=== PATIENT | female | born 1950 | race Caucasian/White ===

== ENCOUNTER 2017-05-11 08:55 | Emergency (ER) | payer MEDICARE, MEDICAID ==
--- NOTE | 2017-05-11 09:34 | EDM.PDOC ---
ED HPI GENERAL MEDICAL PROBLEM - General Chief Complaint: Head Injury Stated Complaint: FELL . IN BY DL AMB Time Seen by Provider: 05/11/17 09:10 Source of Information: Reports: Patient, EMS History Limitations: Reports: No Limitations - History of Present Illness INITIAL COMMENTS - FREE TEXT/NARRATIVE: This 66 yo female patient was brought to the ED by [facility] due to a ground level fall. The patient was at the [facility] when she tripped and hit her forehead on the floor. The patient as a contusion and abrasion on her forehead. The patient denies any loss of consciousness before, during or after the incident. Onset: Today Duration: Minutes: Location: Reports: Head Quality: Reports: Ache, Dull Severity: Mild Improves with: Reports: None Worsens with: Reports: Medication Context: Reports: Trauma (ground level fall) Associated Symptoms: Reports: No Other Symptoms Frontal Head Pain Score (Numeric/FACES): 2 - Related Data Allergies Allergy/AdvReac Type Severity Reaction Status Date / Time No Known Allergies Allergy Verified 05/11/17 08:57 Home Meds: Home Meds Calcium Carbonate [Calcium] 500 mg PO DAILY 05/11/17 [History] Celecoxib 200 mg PO DAILY 05/11/17 [History] Levothyroxine 112 mcg PO DAILY 05/11/17 [History] Metoprolol Succinate 50 mg PO DAILY 05/11/17 [History] Valsartan 320 mg PO DAILY 05/11/17 [History] metFORMIN [Glucophage XR] 500 mg PO DAILY 05/11/17 [History] Past Medical History HEENT History: Reports: Impaired Vision Other HEENT History: legal blindness Cardiovascular History: Reports: High Cholesterol 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 ED EXAM, HEAD INJURY - Physical Exam Exam: See Below Exam Limited By: No Limitations General Appearance: Alert, WD/WN, No Apparent Distress Head: Facial Abrasions (forehead (1 cm)), Facial Swelling (4 cm contusion on forehead) Nexus Criteria: No: Posterior, Midline Cervical Tenderness, Evidence of Intoxication, Altered Level of Consciousness, Focal Neurological Deficit, Painful Distraction Injuries Eyes: Bilateral Eye: EOMI, Normal Inspection, PERRL Ears: Normal External Exam, Normal Canal, Hearing Grossly Normal, Normal TMs Nose: Normal Inspection, Normal Mucousa, No Blood Throat/Mouth: Normal Inspection, Normal Lips, Normal Teeth, Normal Gums, Normal Oropharynx, Normal Voice, No Airway Compromise Neck: Non-Tender, Full Range of Motion, Normal Alignment, Normal Inspection Respiratory: No Respiratory Distress, Lungs Clear, Normal Breath Sounds, No Accessory Muscle Use, Chest Non-Tender Cardiovascular: Normal Peripheral Pulses, Regular Rate, Rhythm, No Edema, No Gallop, No JVD, No Murmur, No Rub GI/Abdominal Exam: Normal Bowel Sounds, Soft, Non-Tender, No Organomegaly, No Distention, No Abnormal Bruit, No Mass (Female) Exam: Deferred Rectal (Female) Exam: Deferred Back Exam: Full Range of Motion, Normal Inspection, NT Extremities: Normal Inspection, Normal Range of Motion, Non-Tender, No Pedal Edema, Normal Capillary Refill 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 As Tested, No Motor/Sensory Deficits, Alert, Normal Mood/Affect, Oriented x 3 Skin: Normal Color, Warm/Dry - [place] Coma Score Best Eye Response ([place]): (4) Open Spontaneously Best Verbal Response ([place]): (5) Oriented Best Motor Response ([place]): (6) Obeys Commands [place] Total: 15 Course - Vital Signs Last Recorded V/S: Last Vital Signs Temp 36.2 C 05/11/17 09:00 Pulse 76 05/11/17 09:00 Resp 18 05/11/17 09:00 BP 160/71 H 05/11/17 09:00 Pulse Ox 97 05/11/17 09:00 - Orders/Labs/Meds Orders: Active Orders 24 hr Category Date Time Status Cervical Spine wo Cont [CT] Urgent Exams 05/11/17 09:05 Ordered Head wo Cont [CT] Urgent Exams 05/11/17 09:04 Ordered Max Facial Sinus wo Cont [CT] Urgent Exams 05/11/17 09:04 Ordered Departure - Departure Time of Disposition: 10:03 Disposition: Home, Self-Care 01 Condition: Fair Clinical Impression: Fall from ground level Forehead contusion Qualifiers: Encounter type: initial encounter Qualified Code(s): S00.83XA - Contusion of other part of head, initial encounter - Discharge Information Instructions: Facial or Scalp Contusion, [id number], Fall Prevention in the Home Forms: ED Department Discharge Care Plan Goals: The patient and care providers were advised of the examination and CT results during the visit. The patient was encouraged to slow down when moving from place to place. The patient's wound was dressed while in the ED. If the patient has any additional symptoms or concerns, the patient should follow-up with her primary care facility or return to the emergency department. - My Orders Last 24 Hours: My Active Orders 05/11/17 09:04 Head wo Cont [CT] Urgent Max Facial Sinus wo Cont [CT] Urgent 05/11/17 09:05 Cervical Spine wo Cont [CT] Urgent - Assessment/Plan Last 24 Hours: My Active Orders 05/11/17 09:04 Head wo Cont [CT] Urgent Max Facial Sinus wo Cont [CT] Urgent 05/11/17 09:05 Cervical Spine wo Cont [CT] Urgent
[2017-05-11 10:23] VITALS: BP 166/69
== END 2017-05-11 10:11 | disposition home or self-care (01) ==
LOC: DL.ED 08:55
DX: S00.83XA Contusion of other part of head, initial encounter (principal); E78.00 Pure hypercholesterolemia, unspecified; E11.9 Type 2 diabetes mellitus without complications; E03.9 Hypothyroidism, unspecified; M19.90 Unspecified osteoarthritis, unspecified site; Z90.710 Acquired absence of both cervix and uterus; Z79.899 Other long term (current) drug therapy; W18.30XA Fall on same level, unspecified, initial encounter
CPT/HCPCS: 70450; 70486; 72125; 99284

== ENCOUNTER 2017-12-03 16:27 | Emergency (ER) | payer MEDICARE, MEDICAID ==
[2017-12-03 16:32] VITALS: BP 166/78
--- NOTE | 2017-12-03 17:08 | EDM.PDOC ---
ED HPI GENERAL MEDICAL PROBLEM - General Chief Complaint: Head Injury Stated Complaint: FELL, MESSED UP FACE Time Seen by Provider: 12/03/17 16:40 Source of Information: Reports: Patient History Limitations: Reports: No Limitations - History of Present Illness INITIAL COMMENTS - FREE TEXT/NARRATIVE: This 67 yo female patient was brought to the ED by a caregiver due to a ground level fall. The patient reports [place] she [place] and fell on her face. The patient reports she had no loss of consciousness before, during or after the fall. The patient does have some bleeding from small lacerations to the bridge of the nose. The patient's left nare had dried blood with no active bleeding. Onset: Today Duration: Minutes:, Constant Location: Reports: Head, Face Quality: Reports: Ache, Dull Severity: Mild Improves with: Reports: None Worsens with: Reports: None Context: Reports: Trauma (ground level fall) Associated Symptoms: Reports: No Other Symptoms - Related Data Allergies Allergy/AdvReac Type Severity Reaction Status Date / Time No Known Allergies Allergy Verified 12/03/17 16:37 Home Meds: Home Meds Calcium Carbonate [Calcium] 500 mg PO DAILY 05/11/17 [History] Celecoxib 200 mg PO DAILY 05/11/17 [History] Levothyroxine 112 mcg PO DAILY 05/11/17 [History] Metoprolol Succinate 50 mg PO DAILY 05/11/17 [History] Valsartan 320 mg PO DAILY 05/11/17 [History] metFORMIN [Glucophage XR] 500 mg PO DAILY 05/11/17 [History] Magnesium 200 mg PO DAILY 12/03/17 [History] Past Medical History HEENT History: Reports: Other (See Below) Other HEENT History: legally blind Cardiovascular History: Reports: High Cholesterol, Hypertension 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 ED EXAM, HEAD INJURY - Physical Exam Exam: See Below Exam Limited By: No Limitations General Appearance: Alert, WD/WN, Mild Distress Head: Scalp Hematoma Eyes: Bilateral Eye: EOMI, Normal Inspection, PERRL Ears: Normal External Exam, Normal Canal, Hearing Grossly Normal, Normal TMs Nose: Dried Blood (left davis), Other (small superficial lacerations to the bridge of the nose) Throat/Mouth: Normal Inspection, Normal Lips, Normal Teeth, Normal Gums, Normal Oropharynx, Normal Voice, No Airway Compromise, Other (dried blood on her teeth) Neck: Non-Tender, Full Range of Motion, Normal Alignment, Normal Inspection Respiratory: No Respiratory Distress, Lungs Clear, Normal Breath Sounds, No Accessory Muscle Use, Chest Non-Tender Cardiovascular: Normal Peripheral Pulses, Regular Rate, Rhythm, No Edema, No Gallop, No JVD, No Murmur, No Rub GI/Abdominal Exam: Normal Bowel Sounds, Soft, Non-Tender, No Organomegaly, No Distention, No Abnormal Bruit, No Mass (Female) Exam: Deferred Rectal (Female) Exam: Deferred Back Exam: Full Range of Motion, Normal Inspection, NT Extremities: Normal Inspection, Normal Range of Motion, Non-Tender, No Pedal Edema, Normal Capillary Refill 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, No Motor/Sensory Deficits, Alert, Normal Mood/Affect, Oriented x 3 Skin: Normal Color, Warm/Dry - [place] Coma Score Best Eye Response ([place]): (4) Open Spontaneously Best Verbal Response ([place]): (5) Oriented Best Motor Response ([place]): (6) Obeys Commands [place] Total: 15 Course - Vital Signs Last Recorded V/S: Last Vital Signs Temp 37.2 C 12/03/17 16:30 Pulse 89 12/03/17 16:30 Resp 18 12/03/17 16:30 BP 166/78 H 12/03/17 16:30 Pulse Ox 99 12/03/17 16:30 - Orders/Labs/Meds Orders: Active Orders 24 hr Category Date Time Status Head wo Cont [CT] Urgent Exams 12/03/17 16:37 Ordered Max Facial Sinus wo Cont [CT] Urgent Exams 12/03/17 16:37 Ordered Departure - Departure Time of Disposition: 17:10 Disposition: Home, Self-Care 01 Condition: Fair Clinical Impression: Fall from ground level Nasal bone fractures Qualifiers: Encounter type: initial encounter Fracture type: closed Qualified Code(s): S02.2XXA - Fracture of nasal bones, initial encounter for closed fracture - Discharge Information Instructions: Nasal Fracture, [id number] Forms: ED Department Discharge Care Plan Goals: The patient and caregiver were advised of the examination and CT results during the visit. The patient was encouraged to continue to ice the nose and forehead. If the patient has any additional symptoms or concerns, the patient should follow-up with her primary care facility or return to the emergency department. - My Orders Last 24 Hours: My Active Orders 12/03/17 16:37 Head wo Cont [CT] Urgent Max Facial Sinus wo Cont [CT] Urgent - Assessment/Plan Last 24 Hours: My Active Orders 12/03/17 16:37 Head wo Cont [CT] Urgent Max Facial Sinus wo Cont [CT] Urgent
== END 2017-12-03 17:22 | disposition home or self-care (01) ==
LOC: DL.ED 16:27
DX: S02.2XXA Fracture of nasal bones, initial encounter for closed fracture (principal); E78.00 Pure hypercholesterolemia, unspecified; I10 Essential (primary) hypertension; E11.9 Type 2 diabetes mellitus without complications; E03.9 Hypothyroidism, unspecified; Z79.899 Other long term (current) drug therapy; Z79.84 Long term (current) use of oral hypoglycemic drugs; W01.0XXA Fall on same level from slipping, tripping and stumbling without subsequent striking against object, initial encounter; Y92.830 Public park as the place of occurrence of the external cause
CPT/HCPCS: 70450; 70486; 99283

== ENCOUNTER 2025-03-06 08:01 | Emergency (ER) | payer MEDICARE, MEDICAID ==
[2025-03-06 08:36] LABS: BASOPHILS PERCENT AUTO 0.2 % (0.0-1.0); EOSINOPHILS PERCENT AUTO 0.1 % (1.0-3.0); LYMPHOCYTES PERCENT AUTO 8.6 % (20.5-50.1); MONOCYTES PERCENT AUTO 1.8 % (2-8); NEUTROPHILS PERCENT AUTO 89.3 % (42.2-75.2); PLATELET COUNT,PLT 277 10^3/uL (150-450); RED BLOOD CELL COUNT 4.01 10^6/uL (4.2-5.4); WHITE BLOOD CELL COUNT,WBC 13.2 10^3/uL (5.0-10.0)
[2025-03-06 08:53] LABS: A/G RATIO 0.9; ALANINE AMINOTRANSFERASE,ALT 26.0 U/L (14-59); ASPARTATE AMNIOTRANSFERASE,AST 20.0 U/L (15-37); BILIRUBIN TOTAL 0.2 mg/dL (0.2-1.0); BLOOD UREA NITROGEN,BUN 38.0 mg/dL (7-18); CARBON DIOXIDE,CO2 24.0 mmol/L (21-32); CHLORIDE,CL 101.0 mmol/L (98-107); CREATININE 1.57 mg/dL (0.55-1.02); EST CRCL DRUG DOSING (CG) 23.36 mL/min; ESTIMATED GFR 34.0 mL/min (>=60); GLUCOSE RANDOM 247.0 mg/dL (70-99); POTASSIUM,K 4.4 mmol/L (3.5-5.1); PROTEIN TOTAL,TP 7.6 g/dL (6.4-8.2); SODIUM,NA 136.0 mmol/L (136-145)
[2025-03-06 11:37] VITALS: BP 169/118; PULSE 69
== END 2025-03-06 11:33 | disposition home or self-care (01) ==
LOC: DL.ED 08:01
DX: S01.01XA Laceration without foreign body of scalp, initial encounter (principal); I10 Essential (primary) hypertension; E78.00 Pure hypercholesterolemia, unspecified; E11.9 Type 2 diabetes mellitus without complications; E03.9 Hypothyroidism, unspecified; J45.909 Unspecified asthma, uncomplicated; Z79.84 Long term (current) use of oral hypoglycemic drugs; Z79.899 Other long term (current) drug therapy; W18.39XA Other fall on same level, initial encounter; Y93.89 Activity, other specified
CPT/HCPCS: 36415; 70450; 71045; 80053; 82947; 84484; 85025; 99283; 99284

== ENCOUNTER 2025-03-06 14:00 | Inpatient (IN) | payer MEDICARE, MEDICAID ==
[2025-03-06] MEDS: Lactated Ringers 1,000 ML IV SCH (14:59)
[2025-03-06] MEDS ORDERED: Ondansetron 4 MG/2 ML SDV IVPUSH PRN (17:17)
[2025-03-06] MEDS ORDERED: Sennosides/Docusate Sodium 50-8.6 MG Tab PO PRN (17:17)
[2025-03-06] MEDS ORDERED: Sodium Chloride 0.9% 10 ML Syringe FLUSH PRN (17:17)
[2025-03-06 18:22] LABS: INR 0.9 (0.9-1.2); T4 FREE 1.37 ng/dL (0.76-1.46); TSH ULTRASENSITIVE 0.59 uIU/mL (0.36-3.74)
[2025-03-06 18:23] LABS: PTT,PARTIAL THROMBOPLSTIN TIME 21.4 SEC (22.0-34.0)
[2025-03-06 18:27] LABS: PHOSPHORUS 2.6 mg/dL (2.6-4.7)
[2025-03-06] MEDS ORDERED: 50% Dextrose in Water 50 ML Syringe IVPUSH PRN (18:54)
[2025-03-06] MEDS: Sodium Chloride 0.9% 10 ML Syringe FLUSH SCH (20:40)
[2025-03-06] MEDS: Insulin Glarg,Human.Rec.Analog 100 Unit/ML 10 ML Vial SUBCUT SCH (20:43)
[2025-03-06 21:36] LABS: APPEARANCE,URINE SLIGHTLY CLOUDY (CLEAR); GLUCOSE,URINE 100 (NEGATIVE); OCCULT BLOOD,URINE TRACE-INTACT (NEGATIVE)
[2025-03-06 21:46] LABS: EPITHELIAL CELLS,URINE FEW /HPF (NOT SEEN)
[2025-03-07 06:20] LABS: PLATELET COUNT,PLT 238.0 10^3/uL (150-450); RED BLOOD CELL COUNT 3.21 10^6/uL (4.2-5.4); WHITE BLOOD CELL COUNT,WBC 7.5 10^3/uL (5.0-10.0)
[2025-03-07 06:43] LABS: ALANINE AMINOTRANSFERASE,ALT 26.0 U/L (14-59); ASPARTATE AMNIOTRANSFERASE,AST 25.0 U/L (15-37); BILIRUBIN TOTAL 0.4 mg/dL (0.2-1.0); BLOOD UREA NITROGEN,BUN 21.0 mg/dL (7-18); CARBON DIOXIDE,CO2 27.0 mmol/L (21-32); CHLORIDE,CL 108.0 mmol/L (98-107); CREATININE 0.85 mg/dL (0.55-1.02); EST CRCL DRUG DOSING (CG) 43.15 mL/min; GLUCOSE RANDOM 126.0 mg/dL (70-99); POTASSIUM,K 3.8 mmol/L (3.5-5.1); PROTEIN TOTAL,TP 5.7 g/dL (6.4-8.2); SODIUM,NA 142.0 mmol/L (136-145)
[2025-03-07 06:45] LABS: A/G RATIO 0.78; ESTIMATED GFR 71.0 mL/min (>=60)
[2025-03-08 06:24] LABS: PLATELET COUNT,PLT 249.0 10^3/uL (150-450); RED BLOOD CELL COUNT 3.38 10^6/uL (4.2-5.4); WHITE BLOOD CELL COUNT,WBC 8.0 10^3/uL (5.0-10.0)
[2025-03-08 06:48] LABS: ALANINE AMINOTRANSFERASE,ALT 26.0 U/L (14-59); ASPARTATE AMNIOTRANSFERASE,AST 27.0 U/L (15-37); BILIRUBIN TOTAL 0.3 mg/dL (0.2-1.0); BLOOD UREA NITROGEN,BUN 14.0 mg/dL (7-18); CARBON DIOXIDE,CO2 26.0 mmol/L (21-32); CHLORIDE,CL 105.0 mmol/L (98-107); CREATININE 0.78 mg/dL (0.55-1.02); EST CRCL DRUG DOSING (CG) 47.03 mL/min; GLUCOSE RANDOM 119.0 mg/dL (70-99); POTASSIUM,K 3.7 mmol/L (3.5-5.1); PROTEIN TOTAL,TP 6.0 g/dL (6.4-8.2); SODIUM,NA 140.0 mmol/L (136-145)
[2025-03-08 06:59] LABS: A/G RATIO 0.76; ESTIMATED GFR 79.0 mL/min (>=60)
[2025-03-09 06:22] LABS: PLATELET COUNT,PLT 244.0 10^3/uL (150-450); RED BLOOD CELL COUNT 3.58 10^6/uL (4.2-5.4); WHITE BLOOD CELL COUNT,WBC 7.7 10^3/uL (5.0-10.0)
[2025-03-09 06:50] LABS: ALANINE AMINOTRANSFERASE,ALT 31.0 U/L (14-59); ASPARTATE AMNIOTRANSFERASE,AST 25.0 U/L (15-37); BILIRUBIN TOTAL 0.5 mg/dL (0.2-1.0); BLOOD UREA NITROGEN,BUN 15.0 mg/dL (7-18); CARBON DIOXIDE,CO2 26.0 mmol/L (21-32); CHLORIDE,CL 103.0 mmol/L (98-107); CREATININE 0.79 mg/dL (0.55-1.02); EST CRCL DRUG DOSING (CG) 46.43 mL/min; GLUCOSE RANDOM 143.0 mg/dL (70-99); POTASSIUM,K 3.7 mmol/L (3.5-5.1); PROTEIN TOTAL,TP 6.3 g/dL (6.4-8.2); SODIUM,NA 138.0 mmol/L (136-145)
[2025-03-09 06:51] LABS: A/G RATIO 0.66; ESTIMATED GFR 78.0 mL/min (>=60)
[2025-03-09] MEDS ORDERED: Potassium Chloride 10 MEQ Tab.ER PO SCH (08:00)
[2025-03-09 11:10] LABS: IRON,FE 48.0 ug/dL (50-170); PERCENT FE SATURATION 20.2 % (20.0-50.0)
[2025-03-09 11:23] LABS: FOLIC ACID 11.8 ng/mL (8.6-58.9)
[2025-03-10 06:21] LABS: PLATELET COUNT,PLT 272.0 10^3/uL (150-450); RED BLOOD CELL COUNT 3.61 10^6/uL (4.2-5.4); WHITE BLOOD CELL COUNT,WBC 8.3 10^3/uL (5.0-10.0)
[2025-03-10 06:43] LABS: ALANINE AMINOTRANSFERASE,ALT 51.0 U/L (14-59); ASPARTATE AMNIOTRANSFERASE,AST 36.0 U/L (15-37); BILIRUBIN TOTAL 0.3 mg/dL (0.2-1.0); BLOOD UREA NITROGEN,BUN 30.0 mg/dL (7-18); CARBON DIOXIDE,CO2 29.0 mmol/L (21-32); CHLORIDE,CL 104.0 mmol/L (98-107); CREATININE 0.97 mg/dL (0.55-1.02); EST CRCL DRUG DOSING (CG) 37.81 mL/min; GLUCOSE RANDOM 143.0 mg/dL (70-99); POTASSIUM,K 3.7 mmol/L (3.5-5.1); PROTEIN TOTAL,TP 6.7 g/dL (6.4-8.2); SODIUM,NA 140.0 mmol/L (136-145)
[2025-03-10 06:52] LABS: A/G RATIO 0.68; ESTIMATED GFR 61.0 mL/min (>=60)
[2025-03-10] MEDS: Ciprofloxacin in D5W 400 MG in Premix Bag 1 BAG IV ONE (16:21)
[2025-03-10] MEDS: Clindamycin in 0.9 % Sod Chlor 900 MG in Premix Bag 1 BAG IV ONE (17:21)
[2025-03-10] MEDS: Clindamycin in 0.9 % Sod Chlor 600 MG in Premix Bag 1 BAG IV SCH (21:23)
[2025-03-10] MEDS: Clindamycin in 0.9 % Sod Chlor 300 MG in Premix Bag 1 BAG IV SCH (21:32)
[2025-03-10] MEDS: Ciprofloxacin in D5W 400 MG in Premix Bag 1 BAG IV SCH (21:33)
[2025-03-10] MEDS ORDERED: Clindamycin in 0.9 % Sod Chlor 900 MG in Premix Bag 1 BAG IV SCH (22:00)
[2025-03-11 05:54] LABS: BASOPHILS PERCENT AUTO 0.3 % (0.0-1.0); EOSINOPHILS PERCENT AUTO 2.5 % (1.0-3.0); LYMPHOCYTES PERCENT AUTO 34.4 % (20.5-50.1); MONOCYTES PERCENT AUTO 7.4 % (2-8); NEUTROPHILS PERCENT AUTO 55.4 % (42.2-75.2); PLATELET COUNT,PLT 276 10^3/uL (150-450); RED BLOOD CELL COUNT 3.49 10^6/uL (4.2-5.4); WHITE BLOOD CELL COUNT,WBC 7.9 10^3/uL (5.0-10.0)
[2025-03-11 06:22] LABS: ALANINE AMINOTRANSFERASE,ALT 75.0 U/L (14-59); ASPARTATE AMNIOTRANSFERASE,AST 51.0 U/L (15-37); BILIRUBIN TOTAL 0.4 mg/dL (0.2-1.0); BLOOD UREA NITROGEN,BUN 30.0 mg/dL (7-18); CARBON DIOXIDE,CO2 28.0 mmol/L (21-32); CHLORIDE,CL 103.0 mmol/L (98-107); CREATININE 0.95 mg/dL (0.55-1.02); EST CRCL DRUG DOSING (CG) 38.61 mL/min; GLUCOSE RANDOM 147.0 mg/dL (70-99); POTASSIUM,K 4.1 mmol/L (3.5-5.1); PROTEIN TOTAL,TP 6.6 g/dL (6.4-8.2); SODIUM,NA 138.0 mmol/L (136-145)
[2025-03-11 06:23] LABS: A/G RATIO 0.69; ESTIMATED GFR 62.0 mL/min (>=60)
[2025-03-12 06:19] LABS: BASOPHILS PERCENT AUTO 0.3 % (0.0-1.0); EOSINOPHILS PERCENT AUTO 2.9 % (1.0-3.0); LYMPHOCYTES PERCENT AUTO 33.6 % (20.5-50.1); MONOCYTES PERCENT AUTO 7.2 % (2-8); NEUTROPHILS PERCENT AUTO 56.0 % (42.2-75.2); PLATELET COUNT,PLT 269 10^3/uL (150-450); RED BLOOD CELL COUNT 3.24 10^6/uL (4.2-5.4); WHITE BLOOD CELL COUNT,WBC 7.0 10^3/uL (5.0-10.0)
[2025-03-12 06:56] LABS: ALANINE AMINOTRANSFERASE,ALT 58.0 U/L (14-59); ASPARTATE AMNIOTRANSFERASE,AST 30.0 U/L (15-37); BILIRUBIN TOTAL 0.4 mg/dL (0.2-1.0); BLOOD UREA NITROGEN,BUN 31.0 mg/dL (7-18); CARBON DIOXIDE,CO2 25.0 mmol/L (21-32); CHLORIDE,CL 100.0 mmol/L (98-107); CREATININE 0.95 mg/dL (0.55-1.02); EST CRCL DRUG DOSING (CG) 38.61 mL/min; GLUCOSE RANDOM 174.0 mg/dL (70-99); POTASSIUM,K 4.1 mmol/L (3.5-5.1); PROTEIN TOTAL,TP 6.5 g/dL (6.4-8.2); SODIUM,NA 135.0 mmol/L (136-145)
[2025-03-12 06:57] LABS: A/G RATIO 0.71; ESTIMATED GFR 62.0 mL/min (>=60)
[2025-03-12] MEDS: Meropenem 1 GM SDV IV SCH (20:03)
[2025-03-13 06:46] LABS: ALANINE AMINOTRANSFERASE,ALT 46.0 U/L (14-59); ASPARTATE AMNIOTRANSFERASE,AST 15.0 U/L (15-37); BILIRUBIN TOTAL 0.3 mg/dL (0.2-1.0); BLOOD UREA NITROGEN,BUN 40.0 mg/dL (7-18); CARBON DIOXIDE,CO2 27.0 mmol/L (21-32); CHLORIDE,CL 102.0 mmol/L (98-107); CREATININE 1.04 mg/dL (0.55-1.02); EST CRCL DRUG DOSING (CG) 35.27 mL/min; GLUCOSE RANDOM 158.0 mg/dL (70-99); POTASSIUM,K 4.2 mmol/L (3.5-5.1); PROTEIN TOTAL,TP 6.6 g/dL (6.4-8.2); SODIUM,NA 137.0 mmol/L (136-145)
[2025-03-13 07:01] LABS: A/G RATIO 0.69; ESTIMATED GFR 56.0 mL/min (>=60)
[2025-03-14 06:11] LABS: BASOPHILS PERCENT AUTO 0.2 % (0.0-1.0); EOSINOPHILS PERCENT AUTO 2.5 % (1.0-3.0); LYMPHOCYTES PERCENT AUTO 28.4 % (20.5-50.1); MONOCYTES PERCENT AUTO 6.5 % (2-8); NEUTROPHILS PERCENT AUTO 62.4 % (42.2-75.2); PLATELET COUNT,PLT 287 10^3/uL (150-450); RED BLOOD CELL COUNT 3.41 10^6/uL (4.2-5.4); WHITE BLOOD CELL COUNT,WBC 8.1 10^3/uL (5.0-10.0)
[2025-03-14 06:31] LABS: BLOOD UREA NITROGEN,BUN 41.0 mg/dL (7-18); CARBON DIOXIDE,CO2 26.0 mmol/L (21-32); CHLORIDE,CL 104.0 mmol/L (98-107); CREATININE 0.93 mg/dL (0.55-1.02); EST CRCL DRUG DOSING (CG) 39.44 mL/min; GLUCOSE RANDOM 172.0 mg/dL (70-99); POTASSIUM,K 4.5 mmol/L (3.5-5.1); SODIUM,NA 138.0 mmol/L (136-145); VANCOMYCIN RANDOM 15.4 ug/mL (No Normal Range)
[2025-03-14 06:33] LABS: ESTIMATED GFR 64.0 mL/min (>=60)
[2025-03-14] MEDS: Heparin Sodium 5,000 Units/ML Vial SUBCUT SCH (21:43)
[2025-03-15 10:14] LABS: BASOPHILS PERCENT AUTO 0.4 % (0.0-1.0); EOSINOPHILS PERCENT AUTO 2.5 % (1.0-3.0); LYMPHOCYTES PERCENT AUTO 28.2 % (20.5-50.1); MONOCYTES PERCENT AUTO 4.4 % (2-8); NEUTROPHILS PERCENT AUTO 64.5 % (42.2-75.2); PLATELET COUNT,PLT 285 10^3/uL (150-450); RED BLOOD CELL COUNT 3.21 10^6/uL (4.2-5.4); WHITE BLOOD CELL COUNT,WBC 6.9 10^3/uL (5.0-10.0)
[2025-03-15 10:21] LABS: BLOOD UREA NITROGEN,BUN 32.0 mg/dL (7-18); CARBON DIOXIDE,CO2 24.0 mmol/L (21-32); CHLORIDE,CL 104.0 mmol/L (98-107); CREATININE 0.77 mg/dL (0.55-1.02); EST CRCL DRUG DOSING (CG) 47.64 mL/min; GLUCOSE RANDOM 267.0 mg/dL (70-99); POTASSIUM,K 4.6 mmol/L (3.5-5.1); SODIUM,NA 135.0 mmol/L (136-145)
[2025-03-15 10:22] LABS: ESTIMATED GFR 80.0 mL/min (>=60)
[2025-03-16 11:23] VITALS: BP 156/67; PULSE 65
== END 2025-03-16 15:35 | disposition home health service (06) | DRG 690 ==
LOC: DL.ED 14:00 → DL.MS 17:04 → UNDOADMIN 17:04 → DL.MS 17:04 → OBSVTOIN 03-09 13:07 → UNDODISIN 03-16 15:35
PROVIDERS: ADMIT Student in an Organized Health Care Education/Training Program; ATTEND Student in an Organized Health Care Education/Training Program
PROC: 0HQ0XZZ Repair Scalp Skin, External Approach (ICD-10-PCS; 2025-03-06)
PROC: 3E03329 Introduction of Other Anti-infective into Peripheral Vein, Percutaneous Approach (ICD-10-PCS; principal; 2025-03-10)
DX: N39.0 Urinary tract infection, site not specified (principal); L03.115 Cellulitis of right lower limb; E87.1 Hypo-osmolality and hyponatremia; N17.9 Acute kidney failure, unspecified; H54.8 Legal blindness, as defined in USA; I12.9 Hypertensive chronic kidney disease with stage 1 through stage 4 chronic kidney disease, or unspecified chronic kidney disease; S01.01XA Laceration without foreign body of scalp, initial encounter; R53.1 Weakness; M16.11 Unilateral primary osteoarthritis, right hip; M25.561 Pain in right knee; M81.0 Age-related osteoporosis without current pathological fracture; E11.22 Type 2 diabetes mellitus with diabetic chronic kidney disease; I10 Essential (primary) hypertension; F79 Unspecified intellectual disabilities; R74.02 Elevation of levels of lactic acid dehydrogenase [LDH]; E78.00 Pure hypercholesterolemia, unspecified; J45.909 Unspecified asthma, uncomplicated; N18.9 Chronic kidney disease, unspecified; Z74.09 Other reduced mobility; D63.1 Anemia in chronic kidney disease; E88.09 Other disorders of plasma-protein metabolism, not elsewhere classified; R74.8 Abnormal levels of other serum enzymes; E03.9 Hypothyroidism, unspecified; Z90.710 Acquired absence of both cervix and uterus; Z79.890 Hormone replacement therapy; W18.30XA Fall on same level, unspecified, initial encounter; Y92.89 Other specified places as the place of occurrence of the external cause; E11.9 Type 2 diabetes mellitus without complications; Z79.899 Other long term (current) drug therapy; Z79.84 Long term (current) use of oral hypoglycemic drugs; W18.2XXA Fall in (into) shower or empty bathtub, initial encounter; Y92.121 Bathroom in nursing home as the place of occurrence of the external cause
CPT/HCPCS: 36415 ×5; 70450; 71045; 73502; 73562; 80053 ×4; 81001; 82009; 82272; 82607; 82728; 82746; 82947 ×13; 83036; 83540; 83550; 83605 ×2; 83735 ×4; 84100; 84439; 84443; 84484; 85025; 85027 ×3; 85610; 85730; 86140 ×4; 87086; 87088; 87186; 96361 ×2; 96374; 96376 ×2; 99223; 99232 ×2; 99283; 99284 ×2; 99285; A9270 ×15; G0378 ×6; J0696 ×3; J1815 ×2; J7030; J7120; 80048; 80202; 96360; 97110-GP; 97161-GP; 97165-GO; 97530-GO; 97530-GP; 97535-GO; 99239; J0737; J0744; J1644; J2185; J3373; J3374; J7050

== ENCOUNTER 2025-03-17 12:28 | Emergency (ER) | payer MEDICARE, MEDICAID ==
[2025-03-17 12:42] VITALS: BP 129/77; PULSE 70
== END 2025-03-17 12:46 | disposition swing bed (61) ==
LOC: DL.ED 12:28
DX: R53.81 Other malaise (principal); Z79.890 Hormone replacement therapy; Z79.899 Other long term (current) drug therapy
CPT/HCPCS: 99285

== ENCOUNTER 2025-03-17 12:54 | Inpatient (IN) | payer MEDICARE, MEDICAID ==
[2025-03-17] MEDS ORDERED: 50% Dextrose in Water 50 ML Syringe IVPUSH PRN (13:26)
[2025-03-17 14:02] LABS: BASOPHILS PERCENT AUTO 0.3 % (0.0-1.0); EOSINOPHILS PERCENT AUTO 1.9 % (1.0-3.0); LYMPHOCYTES PERCENT AUTO 20.0 % (20.5-50.1); MONOCYTES PERCENT AUTO 5.1 % (2-8); NEUTROPHILS PERCENT AUTO 72.7 % (42.2-75.2); PLATELET COUNT,PLT 286 10^3/uL (150-450); RED BLOOD CELL COUNT 3.47 10^6/uL (4.2-5.4); WHITE BLOOD CELL COUNT,WBC 9.0 10^3/uL (5.0-10.0)
[2025-03-17] MEDS: Heparin Sodium 5,000 Units/ML Vial SUBCUT SCH (14:27)
[2025-03-17 14:59] LABS: BLOOD UREA NITROGEN,BUN 25 mg/dL (7-18); CARBON DIOXIDE,CO2 26 mmol/L (21-32); CHLORIDE,CL 101 mmol/L (98-107); CREATININE 0.85 mg/dL (0.55-1.02); EST CRCL DRUG DOSING (CG) 41.08 mL/min; GLUCOSE RANDOM 199 mg/dL (70-99); POTASSIUM,K 4.7 mmol/L (3.5-5.1); SODIUM,NA 137 mmol/L (136-145); T4 FREE 1.43 ng/dL (0.76-1.46); TSH ULTRASENSITIVE 2.40 uIU/mL (0.36-3.74)
[2025-03-17 15:00] LABS: ESTIMATED GFR 71 mL/min (>=60); FOLIC ACID > 20.0 ng/mL (8.6-58.9)
[2025-03-17] MEDS: Calcium Carbonate/Vitamin D3 1250 MG-5 MCG Tab PO SCH (20:00)
[2025-03-18] MEDS: Cholecalciferol (Vitamin D3) 25 MCG Tab PO SCH (10:32)
[2025-03-30 06:31] LABS: BASOPHILS PERCENT AUTO 0.3 % (0.0-1.0); EOSINOPHILS PERCENT AUTO 3.1 % (1.0-3.0); LYMPHOCYTES PERCENT AUTO 39.5 % (20.5-50.1); MONOCYTES PERCENT AUTO 4.8 % (2-8); NEUTROPHILS PERCENT AUTO 52.3 % (42.2-75.2); PLATELET COUNT,PLT 117 10^3/uL (150-450); RED BLOOD CELL COUNT 3.52 10^6/uL (4.2-5.4); WHITE BLOOD CELL COUNT,WBC 7.0 10^3/uL (5.0-10.0)
[2025-03-30 06:41] LABS: BLOOD UREA NITROGEN,BUN 29.0 mg/dL (7-18); CARBON DIOXIDE,CO2 31.0 mmol/L (21-32); CHLORIDE,CL 104.0 mmol/L (98-107); CREATININE 0.99 mg/dL (0.55-1.02); EST CRCL DRUG DOSING (CG) 35.27 mL/min; GLUCOSE RANDOM 109.0 mg/dL (70-99); POTASSIUM,K 4.4 mmol/L (3.5-5.1); SODIUM,NA 139.0 mmol/L (136-145)
[2025-03-30 06:44] LABS: ESTIMATED GFR 59.0 mL/min (>=60)
[2025-03-31 06:35] LABS: BASOPHILS PERCENT AUTO 0.4 % (0.0-1.0); EOSINOPHILS PERCENT AUTO 3.1 % (1.0-3.0); LYMPHOCYTES PERCENT AUTO 30.6 % (20.5-50.1); MONOCYTES PERCENT AUTO 4.9 % (2-8); NEUTROPHILS PERCENT AUTO 61.0 % (42.2-75.2); PLATELET COUNT,PLT 132 10^3/uL (150-450); RED BLOOD CELL COUNT 3.83 10^6/uL (4.2-5.4); WHITE BLOOD CELL COUNT,WBC 8.4 10^3/uL (5.0-10.0)
[2025-04-01 07:49] VITALS: BP 141/66; PULSE 69
== END 2025-04-01 10:45 | DRG 948 ==
LOC: UNDOADMIN 12:54 → DL.MS 12:54
PROVIDERS: ADMIT Internal Medicine; ATTEND Student in an Organized Health Care Education/Training Program
DX: R53.81 Other malaise (principal); L03.115 Cellulitis of right lower limb; D64.9 Anemia, unspecified; D69.6 Thrombocytopenia, unspecified; I10 Essential (primary) hypertension; J45.909 Unspecified asthma, uncomplicated; E78.00 Pure hypercholesterolemia, unspecified; H54.7 Unspecified visual loss; M19.90 Unspecified osteoarthritis, unspecified site; M81.0 Age-related osteoporosis without current pathological fracture; E11.9 Type 2 diabetes mellitus without complications; E03.9 Hypothyroidism, unspecified; Z79.84 Long term (current) use of oral hypoglycemic drugs; Z79.899 Other long term (current) drug therapy
CPT/HCPCS: 36415; 73630-RT; 80048; 82140; 82607; 82746; 82947; 83735; 84439; 84443; 85025; 85049; 86592; 97110-GO; 97110-GP; 97116-GP; 97161-GP; 97165-GO; 97530-GO; 97530-GP; 97535-GO; 99306; 99309; 99310; 99315; A9270-GY; J1644; J1650; J1815-GY